=== PATIENT | female | born 1950 | race Caucasian/White ===

== ENCOUNTER 2019-07-10 10:05 | Emergency (ER) | payer MEDICARE, BC ==
[2019-07-10 11:04] LABS: BILIRUBIN,URINE NEGATIVE (NEGATIVE); GLUCOSE, URINE (UA) NEGATIVE (NEGATIVE); KETONES,URINE (UA) NEGATIVE (NEGATIVE); LEUKOCYTE ESTERASE, URINE MODERATE (NEGATIVE); NITRITE,URINE NEGATIVE (NEGATIVE); OCCULT BLOOD,URINE TRACE-LYSE (NEGATIVE); PH,URINE 5.5 PH (5.0-7.5); PROTEIN,URINE NEGATIVE (NEGATIVE); UROBILINOGEN,URINE 0.2 (NORMAL) E.U./dL (NORMAL)
--- NOTE | 2019-07-10 11:12 | ED Physician Documentation ---
PD HPI FEMALE - Stated complaint Stated Complaint: FEMALE - Chief complaint Chief Complaint: Abd Pain - History obtained from History obtained from: Patient - History of Present Illness Timing - onset: How many weeks ago (1) Timing - details: Still present Associated symptoms: Dysuria, Urinary frequency Similar symptoms before: Diagnosis (Treated for urinary tract infection 3 weeks ago.) - Additional information Additional information: The patient is a 68-year-old female who presents with dysuria and urgency of urination. Her symptoms have been ongoing for the past week. She reports occasional nausea, without vomiting. She denies fever. She was diagnosed with a urinary tract infection 3 weeks ago and prescribed antibiotics. She does not know the name of the antibiotic. Her symptoms improved after taking the antibiotics, but have now recurred. She has recently moved here from [place], and has no local physician. Review of Systems Constitutional: denies: Fever Nose: denies: Congestion Throat: denies: Sore throat Cardiac: denies: Chest pain / pressure Respiratory: denies: Dyspnea, Cough GI: reports: Nausea. denies: Abdominal Pain, Vomiting : reports: Dysuria, Frequency, Hesitancy Skin: denies: Rash Musculoskeletal: denies: Back pain Neurologic: denies: Headache PD PAST MEDICAL HISTORY - Past Medical History Past Medical History: Yes Cardiovascular: Arrhythmia Respiratory: Asthma - Past Surgical History Past Surgical History: Yes General: Cholecystectomy, Appendectomy Ortho: Knee replacement, Shoulder arthroplasty /RD [employer]: Hysterectomy HEENT: Tonsil/Adenoidectomy - Present Medications Home Medications: Ambulatory Orders Medication Instructions Recorded Confirmed Metoprolol Tartrate 50 mg PO QPM 07/10/19 07/10/19 Nitrofurantoin Monohyd/M-Cryst 100 mg PO BID #10 capsule 07/10/19 [Macrobid 100 mg Capsule] Phenazopyridine HCl [Pyridium] 200 mg PO TID #6 tablet 07/10/19 - Allergies Allergies/Adverse Reactions: Allergies Allergy/AdvReac Type Severity Reaction Status Date / Time codeine Allergy Itching Verified 07/10/19 10:13 Penicillins Allergy Rash Verified 07/10/19 10:13 Sulfa (Sulfonamide Allergy Rash Verified 07/10/19 10:13 Antibiotics) tramadol Allergy Itching Verified 07/10/19 10:13 - Social History Does the pt smoke?: No Smoking Status: Never smoker Does the pt have substance abuse?: No PD ED PE NORMAL - Vitals Vital signs reviewed: Yes (Normal) - General General: Alert and oriented X 3, Well developed/nourished, Other (Is holding her service dog in her lap.) - HEENT HEENT: Atraumatic - Cardiac Cardiac: RRR - Respiratory Respiratory: No respiratory distress, Clear bilaterally - Abdomen Abdomen: Soft, Non tender - Back Back: No CVA TTP - Derm Derm: No rash - Extremities Extremities: No edema, No calf tenderness / cord - Neuro Neuro: Alert and oriented X 3, No motor deficit, Normal speech Results - Vitals Vitals: Vital Signs - 24 hr 07/10/19 07/10/19 10:10 12:36 Temperature 36.2 C L Heart Rate 61 45 L Respiratory 18 16 Rate Blood Pressure 129/73 133/66 H O2 Saturation 100 99 Oxygen O2 Source Room air - Labs Labs: Laboratory Tests 07/10/19 10:55 Urine Color YELLOW Urine Clarity HAZY Urine pH 5.5 Ur Specific Corn 1.025 Urine Protein NEGATIVE Urine Glucose (UA) NEGATIVE Urine Ketones NEGATIVE Urine Occult Blood TRACE-LYSE Urine Nitrite NEGATIVE Urine Bilirubin NEGATIVE Urine Urobilinogen 0.2 (NORMAL) Ur Leukocyte Esterase MODERATE H Urine RBC None Seen Urine WBC >25 H Ur Squamous Epith Cells FEW Squamous Urine Bacteria Moderate H Ur Microscopic Review INDICATED Urine Culture Comments INDICATED PD MEDICAL DECISION MAKING - ED course Complexity details: reviewed results, considered differential, d/w patient, d/w family ED course: The patient's presentation is most consistent with acute urinary tract infection. Her presentation does not suggest pyelonephritis or sepsis. She has recently been treated for urinary tract infection, but culture results are not readily available. Treatment in the emergency department included administration of Macrobid 100 mg orally and Pyridium 200 mg orally. She is being discharged with prescriptions for both. I discussed with her and her family the expected course of illness, antibiotic treatment and outpatient follow-up, as well as potentially worrisome signs or symptoms that should prompt reevaluation in the emergency department. Departure - Departure Disposition: 01 Home, Self Care Clinical Impression: Urinary tract infection Qualifiers: Urinary tract infection type: acute cystitis Hematuria presence: without hematuria Qualified Code(s): N30.00 - Acute cystitis without hematuria Condition: Stable Instructions: ED UTI Cystitis Female Prescriptions: Nitrofurantoin Monohyd/M-Cryst [Macrobid 100 mg Capsule] 100 mg PO BID #10 capsule Phenazopyridine HCl [Pyridium] 200 mg PO TID #6 tablet Comments: Drink plenty of fluids, including cranberry juice. Take Macrobid twice daily as prescribed. You can use Pyridium as prescribed if needed for painful urination. You can use Tylenol or ibuprofen as needed for fever or discomfort. Follow up with your primary physician within 2 weeks. Call to schedule appointment. Return to the emergency department if you develop increasing abdominal pain, fever with shaking chills, persistent vomiting, or otherwise worsening symptoms. Discharge Date/Time: 07/10/19 12:43
[2019-07-10 11:30] LABS: CLARITY,URINE HAZY (CLEAR)
[2019-07-10 11:49] LABS: BACTERIA,URINE Moderate /HPF (None Seen); RBC,URINE None Seen /HPF (0-5); SQUAMOUS EPITHELIAL CELL,UR FEW Squamous (<= Few)
[2019-07-10] MEDS ORDERED: NITROFURANTOIN MACRO 100 MG CAPSULE PO STA (12:28)
[2019-07-10] MEDS ORDERED: PHENAZOPYRIDINE 100 MG TABLET PO STA (12:28)
[2019-07-10 12:39] VITALS: BP 133/66
== END 2019-07-10 12:43 | disposition home or self-care (01) ==
LOC: ED 10:05
DX: N30.00 Acute cystitis without hematuria (principal)
CPT/HCPCS: 81001; 87086; 99283; 99284; A9270; 81003

== ENCOUNTER 2021-06-29 20:19 | Outpatient (CLI) | payer MEDICARE, BC | END 2021-06-29 20:20 | disposition EMS.NT | LOC: EMS 20:19 | DX: T63.441A Toxic effect of venom of bees, accidental (unintentional), initial encounter (principal) ==